=== PATIENT | male | born 1925 | race Two or more races ===

== ENCOUNTER 2017-03-19 12:08 | Inpatient (IN) | payer MEDICARE ==
[~2017-03-19] VITALS: Ht 175.3 cm; Wt 70.0 kg
[~2017-03-19 12:08] MED LIST: WARF5TAB71 PO
[2017-03-19] MEDS ORDERED: SODIUM CHLORIDE 0.9% 1,000 ML IV ONE (12:25)
[2017-03-19] MEDS ORDERED: LEVOFLOXACIN 500 MG/100 ML PREMIX BAG IV ONE (12:30)
[2017-03-19 13:50] LABS: Basophils # (auto) 0 uL; Eosinophils # (auto) 0 uL; Hemoglobin 11.7 g/dL (13.5-17.5); Monocytes # (auto) 0.3 uL; Neutrophils # (auto) 13.2 uL; Nucleated Red Blood Cells % 0.1 %; Red Blood Cells 4.22 10^6/uL (4.5-5.90); White Blood Cell 14.1 10^3/uL (4.4-10.8)
[2017-03-19 13:52] LABS: Hematocrit 39.1 % (41.0-53.0); Lymphocytes # (auto) 0.7 uL; Lymphocytes % (auto) 4.6 % (10.0-50.0); Mean Corpuscular Hemoglobin 27.6 pg (28.0-32.0); Mean Corpuscular Hgb Conc. 29.8 g/dL (32.0-36.0); Mean Corpuscular Volume 92.6 fL (80.0-100.0); Monocytes % (auto) 1.8 % (0.0-12.0); Neutrophils % (auto) 93.6 % (37.0-80.0); Platelet Count (auto) 168 10^3/uL (140-450)
[2017-03-19 14:11] LABS: INR 1.34 (0.9-1.15); Partial Thromboplastin Time 33.7 sec (22.64-33.71); Prothrombin Time 14.7 sec (9.37-12.3)
[2017-03-19 14:14] LABS: Red Cell Distribution Width 21.5 % (11.8-14.3)
[2017-03-19 14:19] LABS: Albumin 1.2 g/dL (3.4-5.0); BUN/Creatinine Ratio 36.9; Bilirubin, Total 0.9 mg/dL (0.2-1.0); Calcium 7.3 mg/dL (8.5-10.1); Magnesium 3.6 mg/dL (1.6-2.6); Potassium 4.7 mmol/L (3.5-5.1); Total Protein 7.2 g/dL (6.4-8.2)
[2017-03-19] MEDS ORDERED: OSELTAMIVIR 75 MG CAP PO ONE (14:45)
[2017-03-19] MEDS ORDERED: HYDROcodone-ACET 5/325MG TAB PO PRN (14:45)
[2017-03-19] MEDS ORDERED: LACTULOSE 20Gm/30ML SOLN PO PRN (14:45)
[2017-03-19] MEDS ORDERED: ALBUTEROL SULF 2.5 MG/0.5ML(0.5%) NEB SOLN NEB PRN (14:45)
[2017-03-19] MEDS ORDERED: NITROGLYCERIN 0.4 MG SL TAB SL PRN (14:45)
[2017-03-19] MEDS ORDERED: MORPHINE SULF INJ 2 MG/ML SYRINGE 1ML IV PRN ×2 (14:45)
[2017-03-19] MEDS ORDERED: LORazepam 0.5 MG TAB PO PRN (14:45)
[2017-03-19] MEDS ORDERED: PROMETHAZINE HCL 25 MG/ML 1ML IV PRN (14:45)
[2017-03-19] MEDS ORDERED: SOD CHL 0.45% 1,000 ML IV ONE (14:45)
[2017-03-19] MEDS ORDERED: TEMAZEPAM 15 MG CAP PO PRN (14:45)
[2017-03-19] MEDS ORDERED: ACETAMINOPHEN 500 MG TAB PO PRN (14:45)
[2017-03-19 15:50] LABS: Folate (Folic Acid) 10.59 ng/mL (5.38-24)
[2017-03-19] MEDS: FREE WATER GT SCH ×2 (18:00→22:00)
[2017-03-19 19:00] VITALS: BP 98/51
[2017-03-19] MEDS: ALBUTEROL SULF 2.5 MG/0.5ML(0.5%) NEB SOLN NEB SCH (19:06)
[2017-03-19 19:27] LABS: Urine Bacteria MANY /hpf (None Seen); Urine Blood 2+ /uL (Negative); Urine Mucus FEW (None Seen); Urine Specific Gravity 1.019 (1.001-1.035); Urine WBC 335 /hpf (0 - 3); Urine WBC Clumps PRESENT /hpf (None Seen)
[2017-03-19 20:48] VITALS: BP 98/51
[2017-03-19] MEDS: SODIUM CHLOR 0.9% PF (SALINE LOCK) 10ML VIAL IV SCH (22:00)
[2017-03-19 22:21] VITALS: BP 98/51
[2017-03-20] MEDS: ALBUTEROL SULF 2.5 MG/0.5ML(0.5%) NEB SOLN NEB SCH ×4 (00:25→18:30)
[2017-03-20] MEDS: FREE WATER GT SCH ×6 (02:00→22:00)
[2017-03-20 05:31] VITALS: BP 105/57
[2017-03-20] MEDS: SODIUM CHLOR 0.9% PF (SALINE LOCK) 10ML VIAL IV SCH ×3 (05:35→22:00)
[2017-03-20 07:30] LABS: Basophils # (auto) 0 uL; Basophils % (auto) 0.1 % (0.0-2.0); Eosinophils # (auto) 0 uL; Eosinophils % (auto) 0.1 % (0.0-7.0); Hemoglobin 12.4 g/dL (13.5-17.5); Monocytes # (auto) 0.3 uL; Nucleated Red Blood Cells % 0.1 %
[2017-03-20 07:33] LABS: Hematocrit 40.7 % (41.0-53.0); Lymphocytes # (auto) 0.9 uL; Lymphocytes % (auto) 6.5 % (10.0-50.0); Mean Corpuscular Hemoglobin 28.1 pg (28.0-32.0); Mean Corpuscular Hgb Conc. 30.4 g/dL (32.0-36.0); Mean Corpuscular Volume 92.3 fL (80.0-100.0); Monocytes % (auto) 1.9 % (0.0-12.0); Neutrophils # (auto) 12.5 uL; Neutrophils % (auto) 91.4 % (37.0-80.0); Platelet Count (auto) 158 10^3/uL (140-450); Red Blood Cells 4.41 10^6/uL (4.5-5.90); White Blood Cell 13.7 10^3/uL (4.4-10.8)
[2017-03-20 07:54] LABS: Red Cell Distribution Width 21.3 % (11.8-14.3)
[2017-03-20 07:56] LABS: Albumin 1.3 g/dL (3.4-5.0); Bilirubin, Total 0.9 mg/dL (0.2-1.0); Calcium 7.4 mg/dL (8.5-10.1); Total Protein 7.4 g/dL (6.4-8.2)
[2017-03-20 08:00] LABS: BUN/Creatinine Ratio 44.8
[2017-03-20 09:00] VITALS: BP 117/64
[2017-03-20 13:00] VITALS: BP 116/62
[2017-03-20 17:00] VITALS: BP 114/62
[2017-03-20 20:00] VITALS: BP 125/55
[2017-03-20] MEDS: PANTOPRAZOLE 40 MG/10 ML VIAL IV SCH (20:11)
[2017-03-20] MEDS: ENOXAPARIN SOD 30 MG/0.3 ML SYRINGE SC SCH (20:11)
[2017-03-20] MEDS: OSELTAMIVIR 30 MG CAP PO SCH (20:11)
[2017-03-20] MEDS: ASPirin 81 mg TAB PO SCH (20:11)
[2017-03-20] MEDS: AZITHROMYCIN 500MG/ 250ML 250 ML IV SCH (20:11)
[2017-03-20] MEDS: D5W 5% 1,000 ML IV SCH (20:11)
[2017-03-20] MEDS: cefTRIAXone 1GM/10ml IVPUSH 10 ML IV SCH (20:11)
[2017-03-20] MEDS ORDERED: MORPHINE SULFATE 10 MG/ML INJ 1ML SDV IV PRN (21:15)
[2017-03-20 22:00] VITALS: BP_SYST 108; BP_SYST 125; BP_DIAS 55
[2017-03-21] MEDS: ALBUTEROL SULF 2.5 MG/0.5ML(0.5%) NEB SOLN NEB SCH ×4 (00:55→18:40)
[2017-03-21] MEDS: FREE WATER GT SCH ×3 (02:00→10:00)
[2017-03-21] MEDS: D5W 5% 1,000 ML IV SCH (02:30)
[2017-03-21] MEDS: SODIUM CHLOR 0.9% PF (SALINE LOCK) 10ML VIAL IV SCH ×3 (05:44→22:36)
[2017-03-21 06:00] VITALS: BP 108/55
[2017-03-21 07:13] LABS: Basophils # (auto) 0 uL; Basophils % (auto) 0.1 % (0.0-2.0); Eosinophils # (auto) 0 uL; Lymphocytes # (auto) 0.5 uL
[2017-03-21 07:15] LABS: Hematocrit 39.8 % (41.0-53.0); Lymphocytes % (auto) 3.8 % (10.0-50.0); Mean Corpuscular Hemoglobin 27.7 pg (28.0-32.0); Mean Corpuscular Hgb Conc. 30.2 g/dL (32.0-36.0); Mean Corpuscular Volume 91.6 fL (80.0-100.0); Monocytes # (auto) 0.2 uL; Monocytes % (auto) 1.8 % (0.0-12.0); Neutrophils # (auto) 12.4 uL; Neutrophils % (auto) 94.3 % (37.0-80.0); Nucleated Red Blood Cells % 0.1 %; Platelet Count (auto) 151 10^3/uL (140-450); Red Blood Cells 4.34 10^6/uL (4.5-5.90); White Blood Cell 13.2 10^3/uL (4.4-10.8)
[2017-03-21 07:16] LABS: Red Cell Distribution Width 20.7 % (11.8-14.3)
[2017-03-21 07:48] LABS: Albumin 1.3 g/dL (3.4-5.0); BUN/Creatinine Ratio 49.5; Bilirubin, Total 0.9 mg/dL (0.2-1.0); Calcium 7.3 mg/dL (8.5-10.1); Potassium 4.8 mmol/L (3.5-5.1); Total Protein 7.2 g/dL (6.4-8.2)
[2017-03-21 08:08] VITALS: BP 116/70
[2017-03-21 09:00] VITALS: BP 113/53
[2017-03-21] MEDS: OSELTAMIVIR 30 MG CAP PO SCH (09:49)
[2017-03-21] MEDS: ENOXAPARIN SOD 30 MG/0.3 ML SYRINGE SC SCH (09:49)
[2017-03-21] MEDS: ASPirin 81 mg TAB PO SCH (09:49)
[2017-03-21] MEDS: cefTRIAXone 1GM/10ml IVPUSH 10 ML IV SCH (09:49)
[2017-03-21] MEDS: D5W/SOD CHL 0.45% 1,000 ML IV SCH ×2 (09:49→22:48)
[2017-03-21] MEDS: PANTOPRAZOLE 40 MG/10 ML VIAL IV SCH (09:49)
[2017-03-21] MEDS: AZITHROMYCIN 500MG/ 250ML 250 ML IV SCH (09:49)
[2017-03-21] MEDS: ALBUMIN 25% 100 ML IV SCH ×2 (11:10→21:05)
[2017-03-21 11:35] LABS: Protein, Urine 125.2 mg/dL (0.0-11.9)
[2017-03-21] MEDS: FUROSEMIDE 20 MG/2 ML VIAL IV SCH ×2 (12:32→19:00)
[2017-03-21 13:00] VITALS: BP 116/70
[2017-03-21 17:00] VITALS: BP 95/55
[2017-03-21 23:30] VITALS: BP 96/53
[2017-03-22] MEDS: ALBUTEROL SULF 2.5 MG/0.5ML(0.5%) NEB SOLN NEB SCH ×2 (00:38→08:20)
[2017-03-22] MEDS: FUROSEMIDE 20 MG/2 ML VIAL IV SCH (05:30)
[2017-03-22] MEDS: SODIUM CHLOR 0.9% PF (SALINE LOCK) 10ML VIAL IV SCH (05:30)
[2017-03-22 05:42] VITALS: BP_SYST 144; BP_SYST 88; BP_DIAS 40; BP_DIAS 72
[2017-03-22 07:14] LABS: Basophils # (auto) 0 uL; Basophils % (auto) 0.1 % (0.0-2.0); Eosinophils # (auto) 0 uL; Eosinophils % (auto) 0.1 % (0.0-7.0); Lymphocytes # (auto) 0.6 uL; Monocytes # (auto) 0.3 uL
[2017-03-22 07:17] LABS: Hemoglobin 10.7 g/dL (13.5-17.5); Lymphocytes % (auto) 4.2 % (10.0-50.0); Mean Corpuscular Hemoglobin 28.1 pg (28.0-32.0); Mean Corpuscular Hgb Conc. 28.9 g/dL (32.0-36.0); Mean Corpuscular Volume 97.4 fL (80.0-100.0); Monocytes % (auto) 1.7 % (0.0-12.0); Neutrophils # (auto) 14.5 uL; Neutrophils % (auto) 93.9 % (37.0-80.0); Nucleated Red Blood Cells % 0.1 %; Platelet Count (auto) 130 10^3/uL (140-450); White Blood Cell 15.4 10^3/uL (4.4-10.8)
[2017-03-22 07:33] LABS: BUN/Creatinine Ratio 35.2; Bilirubin, Total 0.8 mg/dL (0.2-1.0); Calcium 7.6 mg/dL (8.5-10.1); Phosphorus 7.4 mg/dL (2.5-4.90); Potassium 5.5 mmol/L (3.5-5.1); Total Protein 7.1 g/dL (6.4-8.2)
[2017-03-22 08:00] VITALS: BP 62/30
[2017-03-22 09:00] VITALS: BP 62/30
[2017-03-22] MEDS ORDERED: FREE WATER GT SCH ×2 (14:00)
== END 2017-03-22 12:29 | disposition expired | DRG 682 ==
LOC: ER 12:08 → EDBD 12:08 → OVERFLOW 12:09 → EAST 18:44
PROVIDERS: ADMIT Internal Medicine; ATTEND Internal Medicine
DX: N17.0 Acute kidney failure with tubular necrosis (principal); G93.41 Metabolic encephalopathy; J18.9 Pneumonia, unspecified organism; E87.0 Hyperosmolality and hypernatremia; I13.0 Hypertensive heart and chronic kidney disease with heart failure and stage 1 through stage 4 chronic kidney disease, or unspecified chronic kidney disease; D68.9 Coagulation defect, unspecified; E87.1 Hypo-osmolality and hyponatremia; I50.32 Chronic diastolic (congestive) heart failure; N39.0 Urinary tract infection, site not specified; I95.9 Hypotension, unspecified; E86.0 Dehydration; F03.90 Unspecified dementia, unspecified severity, without behavioral disturbance, psychotic disturbance, mood disturbance, and anxiety; E78.5 Hyperlipidemia, unspecified; I25.10 Atherosclerotic heart disease of native coronary artery without angina pectoris; N18.9 Chronic kidney disease, unspecified; K59.00 Constipation, unspecified; F32.9 Major depressive disorder, single episode, unspecified; F41.9 Anxiety disorder, unspecified; G47.00 Insomnia, unspecified; N40.0 Benign prostatic hyperplasia without lower urinary tract symptoms; R09.02 Hypoxemia; R29.6 Repeated falls; Z51.5 Encounter for palliative care; Z66 Do not resuscitate; Z82.3 Family history of stroke; Z86.718 Personal history of other venous thrombosis and embolism; Z88.1 Allergy status to other antibiotic agents; Z88.0 Allergy status to penicillin; Z79.01 Long term (current) use of anticoagulants; Z98.61 Coronary angioplasty status; Z86.73 Personal history of transient ischemic attack (TIA), and cerebral infarction without residual deficits
CPT/HCPCS: 36415; 70450; 71045; 80053; 81001; 82306; 82550; 82570; 82607; 82746; 83605; 83735; 83880; 83935; 83970; 84100; 84156; 84300; 84443; 84484; 84550; 85025; 85610; 85652; 85730; 86141; 87040; 87081; 87086; 87088; 87186; 93005; 94640; 96361; 96374; C9113; G9035; J1956; J7042